=== PATIENT | male | born 1970 | race Caucasian/White ===

== ENCOUNTER 2024-12-19 12:41 | Emergency (ER) | payer OTHER, SELFPAY ==
[2024-12-19] VITALS (7 sets, daily range): BP systolic 123–148; BP diastolic 81–108
[2024-12-19] MEDS: NSS 1000 IV (13:17)
[2024-12-19] MEDS: PEPCID 20 MG IV (13:19)
[2024-12-19] MEDS: DECADRON 10 MG IV (13:22)
[2024-12-19] MEDS: OFIRMEV 100 IV (13:23)
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
== END 2024-12-19 17:27 | disposition home or self-care (01) ==
LOC: EMR 12:41
PROVIDERS: EMERGENCY PHYSICIAN Emergency Medicine
DX: T63.441A Toxic effect of venom of bees, accidental (unintentional), initial encounter (principal); R42 Dizziness and giddiness; L53.9 Erythematous condition, unspecified; F41.9 Anxiety disorder, unspecified; I10 Essential (primary) hypertension; Z91.030 Bee allergy status; Z91.011 Allergy to milk products; Z88.5 Allergy status to narcotic agent; Z88.8 Allergy status to other drugs, medicaments and biological substances; Z91.048 Other nonmedicinal substance allergy status
CPT/HCPCS: 99285; 96374; 96375 ×2; 96361; 70450

== ENCOUNTER → 2025-03-12 12:29 | Outpatient (REF) | payer OTHER, SELFPAY | LOC: RAD 12:29 | PROVIDERS: ATTENDING PHYSICIAN Student in an Organized Health Care Education/Training Program; FAMILY PHYSICIAN Family Medicine | DX: R04.2 Hemoptysis (principal) | CPT/HCPCS: 71260; Q9967 ==

== ENCOUNTER 2025-03-16 20:00 | Emergency (ER) | payer OTHER, SELFPAY ==
[2025-03-16 20:11] VITALS: BP 158/104
[2025-03-16 20:32] VITALS: BP 136/96
[2025-03-16 20:34] LABS: Hematocrit 42.1 % (39.0-52.0); Hemoglobin 14.8 g/dL (13.0-18.0); Mean Corp Hgb Conc. 35.2 g/dL (33.0-37.0); Mean Corpuscular Volume 89.8 fL (80.0-94.0); Nucleated Red Blood Cells % 0 % (-); Platelet Count 261 10^3/uL (130-400); Red Cell Dist. Width 13.2 % (11.5-14.5)
[2025-03-16 20:57] LABS: ALT (SGPT) 30 U/L (0-50); AST (SGOT) 25 U/L (17-59); Albumin 4.6 g/dl (3.5-5.0); Alkaline Phosphatase 45 U/L (38-126); Blood Urea Nitrogen 18 mg/dl (9-20); Calcium 10.1 mg/dl (8.4-10.2); Carbon Dioxide 22 mmol/L (22-30); Chloride 105 mmol/L (98-107); Glucose 127 mg/dl (70-99); Potassium 3.8 mmol/L (3.5-5.1); Sodium 135 mmol/L (135-145); Total Protein 7.1 g/dl (6.3-8.2); eGFR > 60.00
[2025-03-16 21:04] LABS: Troponin I < 0.012 ng/ml
[2025-03-17 01:21] VITALS: BP 169/99
[2025-03-17 01:23] VITALS: BP 167/94
[2025-03-17 02:00] VITALS: BP 140/95
[2025-03-17 02:30] VITALS: BP 157/99
[2025-03-17 03:00] VITALS: BP 158/88
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
== END 2025-03-17 03:28 | disposition home or self-care (01) ==
LOC: EMR 20:00
PROVIDERS: Emergency Medicine; EMERGENCY PHYSICIAN Student in an Organized Health Care Education/Training Program; FAMILY PHYSICIAN Family Medicine
DX: R00.2 Palpitations (principal); R53.83 Other fatigue; R94.6 Abnormal results of thyroid function studies; I10 Essential (primary) hypertension
CPT/HCPCS: 99284; 80053; 84439; 84443; 84484; 85025; 93005

== ENCOUNTER → 2025-03-19 08:46 | Outpatient (REF) | payer OTHER, SELFPAY | LOC: MRI 08:46 | PROVIDERS: ATTENDING PHYSICIAN Family Medicine | DX: R42 Dizziness and giddiness (principal); H93.13 Tinnitus, bilateral; R40.20 Unspecified coma | CPT/HCPCS: 70553 ==

== ENCOUNTER → 2025-03-22 12:32 | Outpatient (REF) | payer OTHER, SELFPAY | LOC: RCS 12:32 | PROVIDERS: ATTENDING PHYSICIAN Family Medicine | DX: R00.2 Palpitations (principal) | CPT/HCPCS: 93225; 93226 ==

== ENCOUNTER → 2025-05-04 10:54 | Outpatient (REF) | payer OTHER, SELFPAY ==
--- NOTE | 2025-05-04 14:54 | EEG.RPT ---
Electroencephalogram Report
Recording
Date of EE05/04/25
Type of EEG: Routine
Length of EEG recordin minutes
Done with Video Recording: Yes
Patient Status: Outpatient
Recording Conditions: Awake, Drowsy and Asleep
Hyperventilation Performed: Yes
Photic Stimulation Performed: Yes
Report
GREATER THAN 1 HOUR EEG REPORT
EEG INTERPRETATION:
Unremarkable EEG for age
CLINICAL CORRELATION:
A normal EEG does not rule out a diagnosis of epilepsy. If clinical suspicion for seizure persists, a prolonged recording may be warranted.
Clinical correlation is advised.
METHODS:
A 21 channel digitized electroencephalogram (EEG) was performed using the 10/20 international system of electrode placement and one-lead of ECG recorded. Video was recorded. Persyst quantitative EEG analysis was performed.
ELECTROENCEPHALOGRAPHER IMPRESSION(S):
Quality of study
Good
Background
There was an unremarkable anterior-posterior voltage gradient of alpha frequency.
With eye opening the background activity changed to a low voltage mixture of frequencies.
There were no significant asymmetries of background activity noted.
Sleep
Drowsiness present
Stage I present
Stage 2 present
Hyperventilation
No driving
Photic Stimulation
Not performed
ECG
Normal sinus rhythm
== END ==
LOC: EEG 10:54
PROVIDERS: ATTENDING PHYSICIAN Nurse Practitioner Adult Health; FAMILY PHYSICIAN Family Medicine
DX: R41.0 Disorientation, unspecified (principal); R90.89 Other abnormal findings on diagnostic imaging of central nervous system; R55 Syncope and collapse
CPT/HCPCS: 95813

== ENCOUNTER → 2025-06-11 13:05 | Outpatient (REF) | payer OTHER, SELFPAY | LOC: RCS 13:05 | PROVIDERS: ATTENDING PHYSICIAN Internal Medicine Cardiovascular Disease; FAMILY PHYSICIAN Family Medicine | DX: R07.89 Other chest pain (principal) | CPT/HCPCS: 93017; 93350 ==